=== PATIENT | male | born 1990 | race Hispanic/Latino ===

== ENCOUNTER 2020-06-03 16:40 | Emergency (ER) | payer SELFPAY ==
--- NOTE | 2020-06-03 16:51 | Event Note ---
ED Screening Note Date of service: 06/03/20 Time: 16:49 ED Screening Note: Patient complains of chest pain times today History of COPD and hepatitis C per patient This initial assessment/diagnostic orders/clinical plan/treatment(s) is/are subject to change based on patients health status, clinical progression and re- assessment by fellow clinical providers in the ED. Further treatment and workup at subsequent clinical providers discretion. Patient/guardian urged not to elope from the ED as their condition may be serious if not clinically assessed and managed. Initial orders include: Chest x-ray Labs EKG
--- NOTE | 2020-06-03 17:17 | XRay Report ---
CHEST 2 VIEWS INDICATION: Chest pain. COMPARISON: None. FINDINGS: Support devices: None. Heart: Within normal limits. Lungs/Pleura: No acute air space or interstitial disease. No significant pleural effusion. IMPRESSION: No acute findings. Signer Name: Wade Mccarthy MD Signed: 06/03/2020 5:16 PM Workstation Name: [id number]
[2020-06-03 17:41] LABS: Basophils # (Auto) 0.1 K/mm3 (0.0-0.1); Basophils % (Auto) 1.2 % (0.0-1.8); Eosinophils # (Auto) 0.3 K/mm3 (0.0-0.4); Eosinophils % (Auto) 4.5 % (0.0-4.3); Hematocrit 42.4 % (35.5-45.6); Hemoglobin 14.6 gm/dl (11.8-15.2); Lymphocytes # (Auto) 2.4 K/mm3 (1.2-5.4); Lymphocytes % (Auto) 31.8 % (13.4-35.0); Mean Corpuscular HGB Conc 34 % (32-34); Mean Corpuscular Volume 92 fl (84-94); Monocytes # (Auto) 0.8 K/mm3 (0.0-0.8); Monocytes % (Auto) 9.9 % (0.0-7.3); Platelet Count 286 K/mm3 (140-440); Red Cell Distribution Width 12.4 % (13.2-15.2)
[2020-06-03 18:08] LABS: Alanine Aminotransferase 55 units/L (7-56); Albumin 4.5 g/dL (3.9-5); Blood Urea Nitrogen 12 mg/dL (9-20); Calcium 9.4 mg/dL (8.4-10.2); Hemolysis Index 3
[2020-06-03 18:28] LABS: BUN/Creatinine Ratio 20
--- NOTE | 2020-06-03 20:51 | Emergency Department Report ---
ED General Adult HPI - General Chief complaint: Chest Pain Stated complaint: CHEST PAIN Time Seen by Provider: 06/03/20 16:47 Source: patient Mode of arrival: Ambulatory Limitations: No Limitations - History of Present Illness Initial comments: 29-year-old male with a past medical history of COPD due to smoking since the age of 6 presents emergency department complaining of left-sided shoulder arm and chest discomfort which was exacerbated while he was lifting pushing and pulling at work and pain radiating down his arm and his left side. Reports no palpitation, no fever, chills, sweats no nausea, no no vomiting or no worsening shortness of breath as he states he is always somewhat short of breath due to his COPD. No hemoptysis no hematemesis no hematochezia but has had some mucus production which is normal as well. Reports no abdominal pain or diarrhea no presyncope. Pain is worse with movement palpation and improve when his in the resting position Associated Symptoms: chest pain, shortness of breath. denies: diaphoresis, headaches, loss of appetite, syncope, weakness - Related Data Previous Rx's Medication Instructions Recorded Last Taken Type Albuterol Mdi (or & Nicu Only) 1 puff IH QID PRN #8.5 gram 06/03/20 Unknown Rx [ProAir HFA Inhaler] predniSONE [Deltasone] 50 mg PO QDAY #7 tab 06/03/20 Unknown Rx Allergies Allergy/AdvReac Type Severity Reaction Status Date / Time lithium Allergy Seizure Verified 06/03/20 16:47 ED Review of Systems ROS: Stated complaint: CHEST PAIN Other details as noted in HPI Comment: All other systems reviewed and negative ED Past Medical Hx - Past Medical History Previous Medical History?: Yes Hx COPD: Yes Additional medical history: Hep C - Surgical History Past Surgical History?: No - Social History Smoking Status: Unknown if ever smoked Substance Use Type: None - Medications Home Medications: Home Medications Medication Instructions Recorded Confirmed Last Taken Type Albuterol Mdi (or & Nicu Only) 1 puff IH QID PRN #8.5 gram 06/03/20 Unknown Rx [ProAir HFA Inhaler] predniSONE [Deltasone] 50 mg PO QDAY #7 tab 06/03/20 Unknown Rx ED Physical Exam - General Limitations: No Limitations General appearance: alert, in no apparent distress - Head Head exam: Present: atraumatic, normocephalic - Eye Eye exam: Present: normal appearance - ENT ENT exam: Present: mucous membranes moist - Neck Neck exam: Present: normal inspection - Respiratory Respiratory exam: Present: normal lung sounds bilaterally, chest wall tenderness (Tenderness to the left chest with palpation along the tail of Pedro in the anterior deltoid region). Absent: respiratory distress, wheezes, rales, rhonchi - Cardiovascular Cardiovascular Exam: Present: regular rate, normal rhythm. Absent: bradycardia, tachycardia, systolic murmur, diastolic murmur, rubs, gallop - GI/Abdominal GI/Abdominal exam: Present: soft, normal bowel sounds - Rectal Rectal exam: Present: deferred - Extremities Exam Extremities exam: Present: normal inspection, tenderness (To the left shoulder with palpation and range of motion. No deformities noted. There is pain with ADD duction as well that is read producible and similar to that he experienced at work) - Back Exam Back exam: Present: normal inspection. Absent: CVA tenderness (R), CVA tenderness (L) - Neurological Exam Neurological exam: Present: alert, oriented X3, CN II-XII intact - Psychiatric Psychiatric exam: Present: normal affect, normal mood - Skin Skin exam: Present: warm, dry, intact, normal color. Absent: rash ED Course Vital Signs 06/03/20 16:47 Temperature 98.2 F Pulse Rate 74 Respiratory 18 Rate Blood Pressure 147/99 [Right] O2 Sat by Pulse 98 Oximetry ED Medical Decision Making - Lab Data Result diagrams: 06/03/20 17:03 06/03/20 17:03 - EKG Data EKG shows normal: sinus rhythm Rate: normal - EKG Data Interpretation: normal EKG - Radiology Data Radiology results: report reviewed [address] [address] XRay Report Signed Patient: KENDALL CLANCY MR#: [id number] : 1990 Acct:[id number] Age/Sex: 29 / M ADM Date: 06/03/20 Loc: ED Attending Dr: Ordering Physician: SHANELL BOLTON Date of Service: 06/03/20 Procedure(s): XR chest routine 2V Accession Number(s): [id number] cc: SHANELL BOLTON Fluoro Time In Minutes: CHEST 2 VIEWS INDICATION: Chest pain. COMPARISON: None. FINDINGS: Support devices: None. Heart: Within normal limits. Lungs/Pleura: No acute air space or interstitial disease. No significant pleural effusion. IMPRESSION: No acute findings. Signer Name: Wade Mccarthy MD Signed: 06/03/2020 5:16 PM Workstation Name: [id number] Transcribed By: NANCI Dictated By: Wade Mccarthy MD Electronically Authenticated By: Wade Mccarthy MD Signed Date/Time: 06/03/20 1716 DD/DT: - Medical Decision Making This patient presents with chest pain that is very unlikely angina or acute coronary syndrome. The emergency department evaluation has not identified any cause for suspicion that this chest pain has a cardiac etiology. Based on their history, EKG (which showed no evidence of ischemia or infarction) and imaging, in addition to the patient's physical exam, I see no evidence at this time for a malignant etiology for the patient's chest pain. There is no acute evidence for pulmonary embolus, acute myocardial infarction, pneumothorax, Boerhaeve syndrome, cardiac tamponade, thoracic artery dissection, or any other emergent cardiac, pulmonary or aortic pathology. Given the low pre-test probability for cardiac etiology of chest pain and the absence of any sign of ischemia or infarction, discharge for outpatient follow-up and further evaluation is reasonable. Patient is hemodynamically stable alert and oriented x3 he is ambulatory on his own power with no limitation chest pain was very reproducible on my examination of Mr. Clancy. We discussed a musculoskeletal component for which she is is comfortable and he requesting a work note due to his job job description of which she thinks caused the symptoms I have explained to the patient that even though a cardiac problem is very unlikely, follow-up and further testing is required to reduce further the already small uncertainty that exists. Other life-threatening diagnoses have been considered. The patient understands the need to return immediately if their symptoms worsen or they develop any new symptoms, and not to engage in any si gnificant exertional activity until follow-up is obtained. Critical care attestation.: If time is entered above; I have spent that time in minutes in the direct care of this critically ill patient, excluding procedure time. ED Disposition Clinical Impression: Chest pain Disposition: DC-01 TO HOME OR SELFCARE Is pt being admited?: No Does the pt Need Aspirin: No Condition: Stable Instructions: Chest Pain (ED), Chest Wall Pain, [id number], Nonspecific Chest Pain, Adult Prescriptions: predniSONE [Deltasone] 50 mg PO QDAY #7 tab Albuterol Mdi (or & Nicu Only) [ProAir HFA Inhaler] 1 puff IH QID PRN #8.5 gram PRN Reason: asthma Referrals: PRIMARY CARE, [Primary Care Provider] - 3-5 Days [facility] [Provider Group] - 3-5 Days Forms: Work/School Release Form(ED)
[2020-06-03 21:19] VITALS: BP 150/95
== END 2020-06-03 21:18 | disposition home or self-care (01) ==
LOC: ED 16:40
DX: R07.89 Other chest pain (principal); J44.9 Chronic obstructive pulmonary disease, unspecified; Z88.6 Allergy status to analgesic agent
CPT/HCPCS: 36415; 71046; 80053; 84484; 85025; 93005; 99283